=== PATIENT | male | born 1965 | race Caucasian/White ===

== ENCOUNTER 2017-11-12 18:34 | Emergency (ER) | payer BC ==
[2017-11-12 18:54] VITALS: BP 159/95
--- NOTE | 2017-11-12 18:58 | EDM.PDOC ---
ED HPI GENERAL MEDICAL PROBLEM - General Chief Complaint: Skin Complaint Stated Complaint: INFECTION Time Seen by Provider: 11/12/17 18:50 Source of Information: Reports: Patient History Limitations: Reports: No Limitations - History of Present Illness INITIAL COMMENTS - FREE TEXT/NARRATIVE: HISTORY AND PHYSICAL: History of present illness: Shouldn't is a 52-year-old male who presents to the emergency room with concerns of a infection from a tattoo coverup. He states he received a tattoo on Monday and noticed some redness and swelling around the tattoo site. This is located on his left chest above the nipple. Denies any fever or chills. No drainage or exudate coming from the site. It is not painful to touch. Review of systems: As per history of present illness and below otherwise all systems reviewed and negative. Past medical history: As per history of present illness and as reviewed below otherwise noncontributory. Surgical history: As per history of present illness and as reviewed below otherwise noncontributory. Social history: No reported history of drug or alcohol abuse. Family history: As per history of present illness and as reviewed below otherwise noncontributory. Physical exam: General: Well-developed and well-nourished 52-year-old male. Alert and oriented. Appears nontoxic and in no acute distress. HEENT: Atraumatic, normocephalic, pupils reactive, negative for conjunctival pallor or scleral icterus, mucous membranes moist, throat clear, neck supple, nontender, trachea midline. Lungs: Clear to auscultation, breath sounds equal bilaterally, chest nontender. Heart: S1S2, regular, negative for clicks, rubs, or JVD. Abdomen: Soft, nondistended, nontender. Negative for masses or hepatosplenomegaly. Negative for costovertebral tenderness. Pelvis: Stable nontender. Genitourinary: Deferred. Rectal: Deferred. Extremities: Atraumatic, negative for cords or calf pain. Neurovascular unremarkable. Skin: Tattoo noted to left breast above the nipple with erythema surrounding the fresh ink. The erythema goes towards the mid axillary line and down below the nipple. Nontender to palpation. No nipple drainage. No drainage from the tattoo site. Neuro: Awake, alert, oriented. Cranial nerves II through XII unremarkable. Cerebellum unremarkable. Motor and sensory unremarkable throughout. Exam nonfocal. Area does appear cellulitic. It is nontender to palpation. We'll place the patient on Keflex 500 mg 1 tab twice a day 10 days. Patient is agreeable to plan of care and he denies any further questions at this time. Diagnostics: [] Therapeutics: [] Impression: Cellulitis Plan: 1. Please take the antibiotic as prescribed. Monitor for worsening signs of infection such as redness, drainage, fever or chills. 2. He may take Tylenol and/or ibuprofen for pain management. 3. Keep the area clean and dry. 4. Return to the ED as needed and as discussed. Definitive disposition and diagnosis as appropriate pending reevaluation and review of above. Left Chest Pain Score (Numeric/FACES): 0 - Related Data Allergies Allergy/AdvReac Type Severity Reaction Status Date / Time No Known Allergies Allergy Verified 03/07/16 13:11 Home Meds: Home Meds . [No Known Home Meds] 03/07/16 [History] Past Medical History - Past Health History Medical/Surgical History: Denies Medical/Surgical History Social & Family History - Family History Family Medical History: Noncontributory - Tobacco Use Smoking Status *Q: Never Smoker Second Hand Smoke Exposure: No - Caffeine Use Caffeine Use: Reports: Coffee, Energy Drinks - Recreational Drug Use Recreational Drug Use: No ED ROS GENERAL - Review of Systems Review Of Systems: ROS reveals no pertinent complaints other than HPI. ED EXAM, SKIN/RASH Exam: See Below (See dictation) Course - Vital Signs Last Recorded V/S: Last Vital Signs Temp 98.0 F 11/12/17 18:46 Pulse 98 11/12/17 18:46 Resp 16 11/12/17 18:46 BP 159/95 H 11/12/17 18:46 Pulse Ox 98 11/12/17 18:46 Departure - Departure Time of Disposition: 18:58 Disposition: Home, Self-Care 01 Clinical Impression: Cellulitis Qualifiers: Site of cellulitis: trunk Site of cellulitis of trunk: chest wall Qualified Code(s): L03.313 - Cellulitis of chest wall - Discharge Information Referrals: PCP,None [Primary Care Provider] - Additional Instructions: My general discharge The following information is given to patients seen in the emergency department who are being discharged to home. This information is to outline your options for follow-up care. We provide all patients seen in our emergency department with a follow-up referral. The need for follow-up, as well as the timing and circumstances, are variable depending upon the specifics of your emergency department visit. If you don't have a primary care physician on staff, we will provide you with a referral. We always advise you to contact your personal physician following an emergency department visit to inform them of the circumstance of the visit and for follow-up with them and/or the need for any referrals to a consulting specialist. The emergency department will also refer you to a specialist when appropriate. This referral assures that you have the opportunity for follow-up care with a specialist. All of these measure are taken in an effort to provide you with optimal care, which includes your follow-up. Under all circumstances we always encourage you to contact your private physician who remains a resource for coordinating your care. When calling for follow-up care, please make the office aware that this follow-up is from your recent emergency room visit. If for any reason you are refused follow-up, please contact the [facility] Emergency Department at and asked to speak to the emergency department charge nurse. [facility] [address] [place] [address] 1. Please take the antibiotic as prescribed. Monitor for worsening signs of infection such as redness, drainage, fever or chills. 2. He may take Tylenol and/or ibuprofen for pain management. 3. Keep the area clean and dry. 4. Return to the ED as needed and as discussed.
== END 2017-11-12 19:03 | disposition home or self-care (01) ==
LOC: MW.ED 18:34
DX: L03.313 Cellulitis of chest wall (principal)
CPT/HCPCS: 99283

== ENCOUNTER 2018-12-22 09:27 | Emergency (ER) | payer BC, OTHER ==
--- NOTE | 2018-12-22 10:23 | EDM.PDOC ---
ED HPI GENERAL MEDICAL PROBLEM - General Chief Complaint: Skin Complaint Stated Complaint: RASH Time Seen by Provider: 12/22/18 10:00 - History of Present Illness INITIAL COMMENTS - FREE TEXT/NARRATIVE: HISTORY AND PHYSICAL: History of present illness: Patient 53-year-old white male presents with concern of pruritic rash this is somewhat diffuse he's additionally had a area of tinea corporis on his right leg. [facility] had some improvement of the lesion on his right leg but states the pruritus and the other rashes been somewhat unchanged. Review of systems: As per history of present illness and below otherwise all systems reviewed and negative. Past medical history: As per history of present illness and as reviewed below otherwise noncontributory. Surgical history: As per history of present illness and as reviewed below otherwise noncontributory. Social history: No reported history of drug or alcohol abuse. Family history: As per history of present illness and as reviewed below otherwise noncontributory. Physical exam: HEENT: Atraumatic, normocephalic, pupils reactive, negative for conjunctival pallor or scleral icterus, mucous membranes moist, throat clear, neck supple, nontender, trachea midline. Lungs: Clear to auscultation, breath sounds equal bilaterally, chest nontender. Heart: S1S2, regular, negative for clicks, rubs, or JVD. Abdomen: Soft, nondistended, nontender. Negative for masses or hepatosplenomegaly. Negative for costovertebral tenderness. Pelvis: Stable nontender. Genitourinary: Deferred. Rectal: Deferred. Extremities: Patient has a slightly excoriated circular lesion to his right leg consistent with tinea corporis. He also was noted on his head and neck to have a slight maculopapular rash that is very nonspecific and very mild. Neuro: Awake, alert, oriented. Cranial nerves II through XII unremarkable. Cerebellum unremarkable. Motor and sensory unremarkable throughout. Exam nonfocal. Diagnostics: None Therapeutics: None Impression: #1 tinea corporis #2 nonspecific dermatitis Definitive disposition and diagnosis as appropriate pending reevaluation and review of above. - Related Data Allergies Allergy/AdvReac Type Severity Reaction Status Date / Time No Known Allergies Allergy Verified 10/29/18 10:41 Home Meds: Home Meds . [No Known Home Meds] 03/07/16 [History] Past Medical History - Past Health History Medical/Surgical History: Denies Medical/Surgical History - Past Surgical History Head Surgeries/Procedures: Reports: None Social & Family History - Family History Family Medical History: Noncontributory - Tobacco Use Smoking Status *Q: Never Smoker Second Hand Smoke Exposure: No - Caffeine Use Caffeine Use: Reports: None - Recreational Drug Use Recreational Drug Use: No ED ROS GENERAL - Review of Systems Review Of Systems: ROS reveals no pertinent complaints other than HPI. ED EXAM, SKIN/RASH Exam: See Below (See dictation) Course - Vital Signs Last Recorded V/S: Last Vital Signs Temp 36.6 C 12/22/18 10:03 Pulse 91 12/22/18 10:03 Resp 20 12/22/18 10:03 BP 139/91 H 12/22/18 10:03 Pulse Ox 98 12/22/18 10:03 Departure - Departure Time of Disposition: 10:22 Disposition: Home, Self-Care 01 Condition: Good Clinical Impression: Tinea corporis, Dermatitis - Discharge Information Referrals: Alberto Rangel MD [Primary Care Provider] - Additional Instructions: The following information is given to patients seen in the emergency department who are being discharged to home. This information is to outline your options for follow-up care. We provide all patients seen in our emergency department with a follow-up referral. The need for follow-up, as well as the timing and circumstances, are variable depending upon the specifics of your emergency department visit. If you don't have a primary care physician on staff, we will provide you with a referral. We always advise you to contact your personal physician following an emergency department visit to inform them of the circumstance of the visit and for follow-up with them and/or the need for any referrals to a consulting specialist. The emergency department will also refer you to a specialist when appropriate. This referral assures that you have the opportunity for followup care with a specialist. All of these measure are taken in an effort to provide you with optimal care, which includes your followup. Under all circumstances we always encourage you to contact your private physician who remains a resource for coordinating your care. When calling for followup care, please make the office aware that this follow-up is from your recent emergency room visit. If for any reason you are refused follow-up, please contact the [facility] emergency department at and asked to speak to the emergency department charge nurse. Mycolog as prescribed Medrol Dosepak as prescribed follow-up private medical doctor as discussed dermatology referral return as needed as discussed
[2018-12-22 11:10] VITALS: BP 123/82
== END 2018-12-22 10:58 | disposition home or self-care (01) ==
LOC: MW.ED 09:27
DX: B35.4 Tinea corporis (principal); L30.9 Dermatitis, unspecified
CPT/HCPCS: 99282

== ENCOUNTER 2019-03-19 11:13 | Day surgery (SDC) | payer BC, OTHER ==
[~2019-03-19 11:13] MED LIST: Betamethasone Acetate/Betamethasone Sod Phosphate 30 MG/5 ML MDV ONE; Iopamidol 408 MG/ML 50 ML SDV ONE; Lidocaine 2% 5 ML SDV ONE; Ropivacaine 0.5% 5 MG/ML 30 ML SDV ONE
--- NOTE | 2019-03-19 20:40 | OR ---
SURGEON: Salome Mcgill D.O. DATE OF PROCEDURE: 03/19/2019 PRIMARY SURGEON: Salome Mcgill DO. OPERATING ROOM STAFF: 1. Radha Barnett. 2. Theresa Becerril RN. 3. RT Brigitte. WOUND CLASS: I. PREOPERATIVE DIAGNOSES: 1. Lumbar degenerative disk disease at L3-L4, L4-L5, and L5-S1. 2. Lumbar spinal stenosis. 3. Chronic low back pain with radiculopathy. POSTOPERATIVE DIAGNOSES: 1. Lumbar degenerative disk disease at L3-L4, L4-L5, and L5-S1. 2. Lumbar spinal stenosis. 3. Chronic low back pain with radiculopathy. PROCEDURES PERFORMED: 1. Caudal epidural steroid injection under fluoroscopic guidance for needle placement. 2. Local with oral Valium for sedation. PREOPERATIVE PAIN: 8/10. POSTOPERATIVE PAIN: 1/10. FOLLOWUP: In the Pain Clinic in 3 weeks. SCREENING QUESTIONS: The patient answered "no" to all of the following questions: 1. Are you allergic to latex? 2. Do you have a bleeding disorder? 3. Do you have any current local or systemic infections? 4. Are you taking any anti-inflammatories or blood thinners? 5. Do you have any joint replacements, heart valve replacements, or a pacemaker? DESCRIPTION OF PROCEDURE: The patient had the procedure thoroughly explained including all possible risks, benefits and alternatives. Consent was signed in my clinic indicating understanding and willingness to proceed. The patient presented to [facility] [place] and was escorted to the dressing room to disrobe and change into a hospital gown. Preoperative vital signs were taken and stable. The patient reported that Valium was taken prior to the procedure. The patient was brought back to the procedure room and placed in the prone position on the procedure room table. A pillow was placed under the hips in order to flatten the lumbar lordosis. The back was prepped with ChloraPrep and sterilely draped. All personnel in the operating room were dressed in appropriate attire including surgical scrubs, head and shoe covers. This was to ensure sterility while in the treatment room. During the time fluoroscopy was in use, all personnel in the operating room wore lead murcia with thyroid collars. Sterile technique was used throughout the procedure. The patient was awake and conversant throughout the procedure. There was no evidence of infection at the site of needle insertion. Skeletal landmarks were identified under fluoroscopy for the caudal epidural. Skin was anesthetized with 2% lidocaine with a sterile 27-gauge 1.5 inch needle. Then a 20-gauge Tuohy epidural needle was placed in the epidural space with loss of resistance technique under fluoroscopic guidance. No heme, cerebrospinal fluid, or paresthesias were noted. Isovue-200 contrast dye was injected in 0.2 cubic centimeter increments and seen to outline the epidural space in both AP and lateral views. There was no intravascular flow pattern observed under live fluoroscopy. Then 12 milligrams of Celestone was slowly injected after negative aspiration. The patient tolerated the procedure well. Vital signs were stable during and after the procedure. The staff escorted the patient to the recovery area and the patient was released in stable condition after a brief stay in the recovery room monitored by the nurse. The patient was given both oral and written discharge and follow up instructions with recommendation to follow up given for 2-3 weeks. The patient voiced understanding including understanding of those signs and symptoms that would require emergency care. The patient knows how to contact the office if there are any additional problems or questions in the meantime. LATRICE / COLTON /[id number] SKINNY
== END 2019-03-19 13:05 | disposition home or self-care (01) ==
LOC: MW.SDS 11:13
PROVIDERS: ATTEND Anesthesiology
DX: G89.29 Other chronic pain (principal); M54.5 Low back pain; M51.17 Intervertebral disc disorders with radiculopathy, lumbosacral region; M48.061 Spinal stenosis, lumbar region without neurogenic claudication; M12.88 Other specific arthropathies, not elsewhere classified, other specified site; M79.18 Myalgia, other site; F17.290 Nicotine dependence, other tobacco product, uncomplicated
CPT/HCPCS: 62323; J0702; J2001; J2795; Q9966

== ENCOUNTER 2019-07-18 11:11 | Day surgery (SDC) | payer OTHER ==
[~2019-07-18 11:11] MED LIST changes: +Betamethasone Acetate/Betamethasone Sod Phosphate 30 MG/5 ML MDV EPIDUR ONE; -Betamethasone Acetate/Betamethasone Sod Phosphate 30 MG/5 ML MDV ONE; +Iopamidol 200-M 10 ML vial ITHECAL ONE; -Iopamidol 408 MG/ML 50 ML SDV ONE; +Ropivacaine 0.5% 5 MG/ML 30 ML SDV INJECT ONE; -Ropivacaine 0.5% 5 MG/ML 30 ML SDV ONE
--- NOTE | 2019-07-18 14:46 | OR ---
SURGEON: Salome Mcgill D.O. DATE OF PROCEDURE: 07/18/2019 PRIMARY SURGEON: Salome Mcgill D.O. ASSISTANTS: OR staff present: 1. Radha Barnett. 2. Theresa Pal RN. 3. Mildred Dorado RN. 4. José Jimenes RT. WOUND CLASS: I. PREOPERATIVE DIAGNOSES: 1. Lumbar degenerative disk disease; L4-5, L5-S1. 2. Lumbar spinal stenosis. 3. Lumbar herniated disk, right L5-S1. 4. Lumbar radiculopathy. POSTOPERATIVE DIAGNOSIS: 1. Lumbar degenerative disk disease; L4-5, L5-S1. 2. Lumbar spinal stenosis. 3. Lumbar herniated disk at L5-S1. 4. Lumbar radiculopathy. Procedure performed: Caudal epidural steroid injection Fluoroscopic guidance for needle placement, Local with oral Valium for sedation PREOPERATIVE PAIN: 6/10. POSTOPERATIVE PAIN: 2/10. FOLLOWUP: In the Pain Clinic in 3 weeks. SCREENING QUESTIONS: The patient answered "no" to all of the following questions: 1. Are you allergic to latex? 2. Do you have a bleeding disorder? 3. Do you have any current local or systemic infections? 4. Are you taking any anti-inflammatories or blood thinners? 5. Do you have any joint replacements, heart valve replacements, or a pacemaker? DESCRIPTION OF PROCEDURE: The patient had the procedure thoroughly explained including all possible risks, benefits and alternatives. Consent was signed in my clinic indicating understanding and willingness to proceed. The patient presented to [facility] [place] and was escorted to the dressing room to disrobe and change into a hospital gown. Preoperative vital signs were taken and stable. The patient reported that Valium was taken prior to the procedure. The patient was brought back to the procedure room and placed in the prone position on the procedure room table. A pillow was placed under the hips in order to flatten the lumbar lordosis. The back was prepped with ChloraPrep and sterilely draped. All personnel in the operating room were dressed in appropriate attire including surgical scrubs, head and shoe covers. This was to ensure sterility while in the treatment room. During the time fluoroscopy was in use, all personnel in the operating room wore lead murcia with thyroid collars. Sterile technique was used throughout the procedure. The patient was awake and conversant throughout the procedure. There was no evidence of infection at the site of needle insertion. Skeletal landmarks were identified under fluoroscopy for the caudal epidural. Skin was anesthetized with 2% lidocaine with a sterile 27-gauge 1.5 inch needle. Then a 20-gauge Tuohy epidural needle was placed in the epidural space with loss of resistance technique under fluoroscopic guidance. No heme, cerebrospinal fluid, or paresthesias were noted. Isovue-200 contrast dye was injected in 0.2 cubic centimeter increments and seen to outline the epidural space in both AP and lateral views. There was no intravascular flow pattern observed under live fluoroscopy. Then 12 milligrams of Celestone was slowly injected after negative aspiration. The patient tolerated the procedure well. Vital signs were stable during and after the procedure. The staff escorted the patient to the recovery area and the patient was released in stable condition after a brief stay in the recovery room monitored by the nurse. The patient was given both oral and written discharge and follow up instructions with recommendation to follow up given for 2-3 weeks. The patient voiced understanding including understanding of those signs and symptoms that would require emergency care. The patient knows how to contact the office if there are any additional problems or questions in the meantime. LATRICE / COLTON /[id number] MTDMiah
== END 2019-07-18 12:50 | disposition home or self-care (01) ==
LOC: MW.SDS 11:11
PROVIDERS: ATTEND Anesthesiology
DX: G89.29 Other chronic pain (principal); M51.16 Intervertebral disc disorders with radiculopathy, lumbar region; M48.061 Spinal stenosis, lumbar region without neurogenic claudication; M51.37 Other intervertebral disc degeneration, lumbosacral region; M51.27 Other intervertebral disc displacement, lumbosacral region; M48.07 Spinal stenosis, lumbosacral region; M12.88 Other specific arthropathies, not elsewhere classified, other specified site; M79.18 Myalgia, other site; F17.290 Nicotine dependence, other tobacco product, uncomplicated; Z88.8 Allergy status to other drugs, medicaments and biological substances; Z79.899 Other long term (current) drug therapy
CPT/HCPCS: 62323; J0702; J2795; Q9966; J2001